=== PATIENT | male | born 1985 | race Caucasian/White ===

== ENCOUNTER → 2020-03-06 | Outpatient (CLI) | payer OTHER ==
[~2020-03-06] MED LIST: BACTRIM DS TAB1 EACH PO; BUSPIRONE HCL15 MG PO; CLINDAMYCIN HC300 MG PO; IBUPROFEN600 MG PO; INDERAL TAB 1010 MG PO; LISINOPRIL5 MG PO; LODINE CAP 300300 MG PO; NEURONTIN 400400 MG PO; OLANZAPINE15 MG PO; PROTONIX40 MG PO; REMERON 15 MG T15 MG PO; WELLBUTRIN XL300 M1 PO; ZANAFLEX 4 MG TA4 MG PO; ZYPREXA15 MG PO
== END ==
LOC: KOH-I 10:30
DX: Q74.2 Other congenital malformations of lower limb(s), including pelvic girdle (principal); S73.002A Unspecified subluxation of left hip, initial encounter; M16.12 Unilateral primary osteoarthritis, left hip; X58.XXXA Exposure to other specified factors, initial encounter
CPT/HCPCS: 73700

== ENCOUNTER 2020-04-07 21:53 | Emergency (ER) | payer OTHER ==
[~2020-04-07 21:53] MED LIST changes: -LODINE CAP 300300 MG PO
[2020-04-07] MEDS ORDERED: LODINE CAP 300300 MG PO (23:53)
== END 2020-04-08 00:01 | disposition home or self-care (01) ==
LOC: ER1 21:53
DX: S70.02XA Contusion of left hip, initial encounter (principal); F17.210 Nicotine dependence, cigarettes, uncomplicated; W00.0XXA Fall on same level due to ice and snow, initial encounter; Y92.009 Unspecified place in unspecified non-institutional (private) residence as the place of occurrence of the external cause
CPT/HCPCS: 73502; 99283

== ENCOUNTER 2020-04-08 00:24 | Emergency (ER) | payer OTHER ==
[~2020-04-08 00:24] MED LIST changes: +LODINE CAP 300300 MG PO
== END 2020-04-09 10:24 | disposition other institution (70) ==
LOC: ER1 00:24
PROVIDERS: Physician Assistant
DX: R45.851 Suicidal ideations (principal); R44.0 Auditory hallucinations; M25.552 Pain in left hip; F32.9 Major depressive disorder, single episode, unspecified; F17.210 Nicotine dependence, cigarettes, uncomplicated; Z98.890 Other specified postprocedural states; Z79.899 Other long term (current) drug therapy; Z20.822 Contact with and (suspected) exposure to COVID-19
CPT/HCPCS: 80307; 81001; 87086; 99285; U0002

== ENCOUNTER → 2020-05-09 | Outpatient (CLI) | payer OTHER ==
[2020-05-09 14:47] LABS: HEMOGLOBIN 14.8 gm/dl (14.0-17.5); RED BLOOD COUNT 5.18 M/UL (4.20-5.50); WHITE BLOOD COUNT 3.8 K/UL (4.5-11.0)
[2020-05-09 15:08] LABS: BUN/CREATININE RATIO 20 (0-10)
[2020-05-10 08:12] LABS: ANTISTREPTOLYSIN O AB 447.4 IU/mL (0.0-200.0); RHEUMATOID ARTHRITIS FACTOR <10.0 IU/mL (0.0-13.9)
[2020-05-10 09:12] LABS: HBSAG SCREEN Negative (Negative); HEP A AB, IGM Negative (Negative); HEP B CORE AB, IGM Negative (Negative); HEP C VIRUS AB >11.0 (0.0-0.9)
== END ==
LOC: LAB 13:29
PROVIDERS: Nurse Practitioner Family
DX: Z00.00 Encounter for general adult medical examination without abnormal findings (principal); M19.90 Unspecified osteoarthritis, unspecified site; E78.5 Hyperlipidemia, unspecified; R53.83 Other fatigue; R53.81 Other malaise; I10 Essential (primary) hypertension; M25.50 Pain in unspecified joint; Z79.899 Other long term (current) drug therapy
CPT/HCPCS: 36415; 80053; 80061; 80074; 82150; 83690; 84443; 84550; 85027; 85652; 86038; 86060; 86140; 86431

== ENCOUNTER 2020-05-20 18:06 | Emergency (ER) | payer OTHER ==
[2020-05-20 22:05] LABS: HEMOGLOBIN 13.7 gm/dl (14.0-17.5); RED BLOOD COUNT 4.8 M/UL (4.20-5.50); WHITE BLOOD COUNT 7.2 K/UL (4.5-11.0)
[2020-05-20 22:30] LABS: BUN/CREATININE RATIO 13 (0-10)
== END 2020-05-21 03:20 | disposition home or self-care (01) ==
LOC: ER1 18:06
PROVIDERS: Physician Assistant Medical
DX: F41.9 Anxiety disorder, unspecified (principal); I10 Essential (primary) hypertension; F32.9 Major depressive disorder, single episode, unspecified; Z20.822 Contact with and (suspected) exposure to COVID-19; F17.290 Nicotine dependence, other tobacco product, uncomplicated; Z79.82 Long term (current) use of aspirin; Z79.899 Other long term (current) drug therapy
CPT/HCPCS: 71045; 80053; 80307; 81001; 82550; 82553; 83874; 84439; 84443; 84484; 85025; 93005; 99285; G0480; Q0177; U0002

== ENCOUNTER 2020-09-27 13:30 | Emergency (ER) | payer OTHER ==
[2020-09-27 13:56] LABS: HEMOGLOBIN 12.4 gm/dl (14.0-17.5); RED BLOOD COUNT 4.43 M/UL (4.20-5.50); WHITE BLOOD COUNT 5.4 K/UL (4.5-11.0)
[2020-09-27 14:21] LABS: BUN/CREATININE RATIO 8 (0-10)
[2020-09-27 19:33] LABS: BUN/CREATININE RATIO 9 (0-10)
== END 2020-09-27 21:46 | disposition home or self-care (01) ==
LOC: ER1 13:30
PROVIDERS: Physician Assistant; Physician Assistant Medical
DX: R55 Syncope and collapse (principal); E86.0 Dehydration; I10 Essential (primary) hypertension; F17.210 Nicotine dependence, cigarettes, uncomplicated; Z86.19 Personal history of other infectious and parasitic diseases
CPT/HCPCS: 70450; 71045; 80053; 80307; 81001; 82550; 82553; 83874; 84484; 85025; 93005; 99285

== ENCOUNTER 2020-12-25 02:17 | Emergency (ER) | payer OTHER ==
[2020-12-25 02:37] LABS: HEMOGLOBIN 12.6 gm/dl (14.0-17.5); RED BLOOD COUNT 4.21 M/UL (4.20-5.50); WHITE BLOOD COUNT 8.4 K/UL (4.5-11.0)
== END 2020-12-25 08:28 | disposition home or self-care (01) ==
LOC: ER1 02:17
PROVIDERS: Family Medicine
DX: T42.6X1A Poisoning by other antiepileptic and sedative-hypnotic drugs, accidental (unintentional), initial encounter (principal); I10 Essential (primary) hypertension; F17.210 Nicotine dependence, cigarettes, uncomplicated; X58.XXXA Exposure to other specified factors, initial encounter
CPT/HCPCS: 70450; 71045; 80053; 80307; 81001; 83605; 83690; 83735; 85025; 93005; 96374; 99284; G0480; J2310; J3411; J3475; J7030

== ENCOUNTER 2021-04-01 19:58 | Emergency (ER) | payer OTHER | END 2021-04-02 05:02 | disposition short-term general hospital (02) | LOC: ER1 19:58 | DX: R45.851 Suicidal ideations (principal); F41.9 Anxiety disorder, unspecified; Z20.822 Contact with and (suspected) exposure to COVID-19 | CPT/HCPCS: 99284; U0002 ==

== ENCOUNTER → 2021-06-08 | Outpatient (CLI) | payer OTHER | LOC: RAD 15:28 | DX: R05.9 Cough, unspecified (principal); M54.2 Cervicalgia; M54.6 Pain in thoracic spine; M54.50 Low back pain, unspecified; M47.812 Spondylosis without myelopathy or radiculopathy, cervical region | CPT/HCPCS: 71046; 72050; 72070; 72110 ==

== ENCOUNTER 2021-10-03 04:01 | Emergency (ER) | payer OTHER ==
[2021-10-03 04:37] LABS: HEMOGLOBIN 10.5 gm/dl (14.0-17.5); RED BLOOD COUNT 3.7 M/UL (4.20-5.50)
[2021-10-03 05:01] LABS: BUN/CREATININE RATIO 10 (0-10)
== END 2021-10-03 06:55 | disposition home or self-care (01) ==
LOC: ER1 04:01
PROVIDERS: Student in an Organized Health Care Education/Training Program
DX: M25.552 Pain in left hip (principal); Z20.822 Contact with and (suspected) exposure to COVID-19
CPT/HCPCS: 0240U; 73502; 80053; 80307; 81001; 85025; 99284

== ENCOUNTER → 2021-10-13 | Outpatient (CLI) | payer OTHER ==
[~2021-10-13] MED LIST changes: +BUSPIRONE HCL30 MG PO; +CLONIDINE HCL0.1 MG PO; +GABAPENTIN800 MG PO; +LISINOPRIL10 MG PO; +OLANZAPINE20 MG PO; +QUETIAPINE FUM400 MG PO; +WELLBUTRIN XL300 MG PO
[2021-10-13 13:11] LABS: HEMOGLOBIN 12.6 gm/dl (14.0-17.5); RED BLOOD COUNT 4.34 M/UL (4.20-5.50); WHITE BLOOD COUNT 4.9 K/UL (4.5-11.0)
[2021-10-13 13:43] LABS: BUN/CREATININE RATIO 12 (0-10)
== END ==
LOC: OPSV2 10-12 09:00
PROVIDERS: Orthopaedic Surgery
DX: Z01.818 Encounter for other preprocedural examination (principal); M16.12 Unilateral primary osteoarthritis, left hip
CPT/HCPCS: 36415; 80048; 80307; 85025; 93005

== ENCOUNTER → 2021-11-05 | Outpatient (CLI) | payer OTHER ==
[~2021-11-05] MED LIST changes: +IBU800 MG PO
[2021-11-05 10:51] LABS: HEMOGLOBIN 13.5 gm/dl (14.0-17.5); RED BLOOD COUNT 4.61 M/UL (4.20-5.50); WHITE BLOOD COUNT 3.5 K/UL (4.5-11.0)
[2021-11-05 11:17] LABS: BUN/CREATININE RATIO 9 (0-10)
== END ==
LOC: EDSTATUS 10:00 → OPSV2 10:00
PROVIDERS: Orthopaedic Surgery
DX: Z01.812 Encounter for preprocedural laboratory examination (principal); M16.12 Unilateral primary osteoarthritis, left hip
CPT/HCPCS: 80048; 85025

== ENCOUNTER → 2021-11-16 | Outpatient (CLI) | payer OTHER ==
[~2021-11-16] MED LIST changes: +ASPIR-TRIN325 MG PO; +HYDROCODON-ACE1 EAC6 PO; +SEROQUEL400 MG PO; +ZYPREXA20 MG PO
== END ==
LOC: KOH-I 13:00
DX: Z01.818 Encounter for other preprocedural examination (principal); M16.12 Unilateral primary osteoarthritis, left hip
CPT/HCPCS: 72192

== ENCOUNTER → 2021-11-18 | Outpatient (CLI) | payer OTHER ==
[2021-11-18 12:16] LABS: BUN/CREATININE RATIO 12 (0-10)
== END ==
LOC: LAB 11:07
PROVIDERS: Orthopaedic Surgery
DX: Z01.812 Encounter for preprocedural laboratory examination (principal)
CPT/HCPCS: 36415; 80048; 86850; 86900; 86901

== ENCOUNTER 2021-11-19 08:12 | Day surgery (SDC) | payer OTHER ==
[~2021-11-19] VITALS: Ht 170.2 cm; Wt 76.2 kg
[~2021-11-19 08:12] MED LIST changes: -ASPIR-TRIN325 MG PO; -HYDROCODON-ACE1 EAC6 PO; -SEROQUEL400 MG PO; -ZYPREXA20 MG PO
[2021-11-19] MEDS ORDERED: SEROQUEL400 MG PO (08:42)
[2021-11-19] MEDS ORDERED: ZYPREXA20 MG PO (08:43)
[2021-11-19] MEDS ORDERED: CLONIDINE HCL0.1 MG PO (08:44)
[2021-11-19] MEDS ORDERED: GABAPENTIN800 MG PO (08:44)
[2021-11-19] MEDS ORDERED: BUSPIRONE HCL30 MG PO (08:45)
[2021-11-20 03:19] LABS: HEMOGLOBIN 10.1 gm/dl (14.0-17.5); RED BLOOD COUNT 3.43 M/UL (4.20-5.50); WHITE BLOOD COUNT 6.7 K/UL (4.5-11.0)
[2021-11-20 04:04] LABS: BUN/CREATININE RATIO 12 (0-10)
[2021-11-20] MEDS ORDERED: HYDROCODON-ACE1 EAC6 PO (06:06)
[2021-11-20] MEDS ORDERED: ASPIR-TRIN325 MG PO (06:06)
== END 2021-11-20 17:38 | disposition home or self-care (01) ==
LOC: OR 08:12 → M/S 15:15 → OR 11-20 17:38
PROVIDERS: Orthopaedic Surgery
DX: M16.12 Unilateral primary osteoarthritis, left hip (principal); S73.002A Unspecified subluxation of left hip, initial encounter; X58.XXXA Exposure to other specified factors, initial encounter; I10 Essential (primary) hypertension; E87.5 Hyperkalemia; Z72.0 Tobacco use
CPT/HCPCS: 36415; 73502; 76000; 80048; 83735; 85025; 97116-GP-CQ; 97161; 97166; 97530; 97535; C1713; C1776; J0690; J1100; J1170; J1644; J2250; J2274; J2405; J2704; J3010; J7050